=== PATIENT | male | born 1990 | race Caucasian/White ===

== ENCOUNTER 2019-03-17 21:50 | Emergency (ER) | payer BC, OTHER ==
[~2019-03-17] VITALS: Ht 170.2 cm; Wt 91.6 kg
[~2019-03-17 21:50] MED LIST: HYDR-4011 PO
[2019-03-17 21:52] VITALS: Ht 170.2 cm; Wt 91.6 kg
[2019-03-17 22:10] VITALS: BP 146/76; PULSE 110; RESP 20
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
== END 2019-03-17 22:30 | disposition home or self-care (01) ==
LOC: E/R 21:50
DX: S43.015A Anterior dislocation of left humerus, initial encounter (principal); Y04.0XXA Assault by unarmed brawl or fight, initial encounter